=== PATIENT | female | born 1965 | race Caucasian/White ===

== ENCOUNTER → 2021-06-10 | Outpatient (CLI) | payer OTHER ==
--- NOTE | 2021-06-17 10:01 | RAD ---
BILATERAL SCREENING MAMMOGRAM History: Routine screening. Comparison: Most recently on 02/07/2020. Technique: Routine 2D and 3D tomosynthesis digital mammogram views were obtained bilaterally. Interpr etation was assisted with the use of computer-aided detection. Findings: Breast Tissue Density C : The breasts are heterogeneously dense, which may obscure small masses. Scattered nodular asymmetries, left more so than right, not significantly different from priors. No n ewly seen dominant mass, architectural distortion or suspicious microcalcifications. IMPRESSION: No mammographic evidence of malignancy. Recommend routine screening mammography in one year. BI-RADS category 2: Benign findings. Patient information is entered into the reminder system with a target due date for the next screening mammogram. "Our facility is accredited by the [employer] Mammography [employer]." Electronically signed by: GUTIERREZ ARMENTA MD (06/17/2021 9:58 AM) [id number]
== END ==
LOC: MAMMO 14:49
PROVIDERS: ATTEND Family Medicine Sports Medicine
DX: Z12.31 Encounter for screening mammogram for malignant neoplasm of breast (principal)
CPT/HCPCS: 77063; 77067